=== PATIENT | female | born 1965 | race Caucasian/White ===

== ENCOUNTER → 2019-04-05 12:51 | Outpatient (CLI) | payer OTHER, SELFPAY ==
--- NOTE | 2019-04-05 13:08 | XR_ITS ---
PROCEDURE: XR HIP LT 2-3V W/PELVIS CLINICAL INDICATION: LT HIP PAIN Left hip pain COMPARISON: No exams were available for comparison FINDINGS: No fracture or dislocation is evident. No significant degenerative change. No lytic or blastic change. Unremarkable soft tissues. IMPRESSION: No acute findings. Dictated by: Joce Bruce MD 04/05/2019 13:40 Electronically signed by Joce Bruce MD in [facility] 04/05/2019 13:40
--- NOTE | 2019-04-05 13:08 | XR_ITS ---
PROCEDURE: XR CHEST 2V CLINICAL HISTORY: BRONCHITIS COMPARISON: No exams were available for comparison FINDINGS: The cardiomediastinal silhouette and pulmonary vascularity are within normal limits. No lobar consolidation or collapse. Faint nodular opacity overlies the posterior aspect of the right 7th rib and may be due to summation artifact. Stability may be confirmed with follow-up. No acute bony abnormalities. IMPRESSION: No definite acute finding. Please see above for detail Dictated by: Joce Bruce MD 04/05/2019 13:44 Electronically signed by Joce Bruce MD in [facility] 04/05/2019 13:44
== END ==
PROVIDERS: PCP Family Medicine; Visit Provider Nurse Practitioner
DX: J40 Bronchitis, not specified as acute or chronic (principal); M25.552 Pain in left hip
CPT/HCPCS: 71046; 73502

== ENCOUNTER → 2020-08-18 12:19 | Outpatient (CLI) | payer OTHER, SELFPAY ==
--- NOTE | 2020-08-18 | XR_ITS ---
PROCEDURE: XR CERVICAL SPINE 5V CLINICAL INDICATION: NECK PAIN. NO TRAUMA COMPARISON: No exams were available for comparison FINDINGS: Normal alignment. No fracture or dislocation. No lytic or blastic change. Mild degenerative disc disease at C5-C6. Facet hypertrophic changes are present on the left from C2-C7 and to lesser degree on the right from C5-C7. No significant foraminal narrowing. No evidence of cervical rib. Carotid artery calcifications are present on the right IMPRESSION: Mild cervical spondylosis as described above. Dictated by: Joce Bruce MD 08/18/2020 12:50 Joce Bruce MD in [facility] 08/18/2020 12:50
== END ==
PROVIDERS: PCP Family Medicine; Visit Provider Family Medicine
DX: M54.2 Cervicalgia (principal)
CPT/HCPCS: 72050

== ENCOUNTER → 2020-11-17 13:27 | Outpatient (CLI) | payer OTHER, SELFPAY ==
--- NOTE | 2020-11-17 13:33 | XR_ITS ---
PROCEDURE: XR CHEST 2V CLINICAL HISTORY: SOB,PALITATIONS COMPARISON: CR XR CHEST 2V from 04/05/2019 FINDINGS: The cardiomediastinal silhouette and pulmonary vascularity are within normal limits. No lobar consolidation or collapse. 9 mm nodules present in the right midlung. Suggest chest CT with contrast for further evaluation. The remaining lungs are clear. No acute bony anomalies. IMPRESSION: 9 mm right midlung nodule. Recommend chest CT with contrast for further evaluation. Dictated by: Joce Bruce MD 11/17/2020 13:50 Joce Bruce MD in [facility] 11/17/2020 13:50
--- NOTE | 2020-11-17 14:02 | ECG_ITS ---
APPROVED REPORT Exam: Resting ECG HR:74 bpm ECG Measurements Heart Rate 74 AXES CA 160 P 42 QRSd 78 QRS -2 QT 404 T 16 QTc 448 Conclusion Normal sinus rhythm Nonspecific ST abnormality Abnormal ECG Electronically signed by : Nickolas Suazo MD 11/17/2020 18:01:09
== END ==
PROVIDERS: PCP Family Medicine; Visit Provider Family Medicine
DX: R06.02 Shortness of breath (principal); R00.2 Palpitations
CPT/HCPCS: 71046; 93005

== ENCOUNTER → 2020-12-01 09:43 | Outpatient (CLI) | payer OTHER, SELFPAY ==
[2020-12-01 10:26] LABS: Blood Urea Nitrogen 12 mg/dl (7-17); Estimated Glomerular Filt Rate 74 ml/min (>60); GFR (African American) 90 ML/MIN (>60)
== END ==
PROVIDERS: Visit Provider Family Medicine
DX: R91.1 Solitary pulmonary nodule (principal)
CPT/HCPCS: 36415; 82565; 84520

== ENCOUNTER → 2020-12-03 12:37 | Outpatient (CLI) | payer OTHER, SELFPAY ==
[2020-12-03 13:30] VITALS: PULSE 64; PULSE 67
--- NOTE | 2020-12-03 14:11 | CT_ITS ---
PROCEDURE: CT CHEST W CON CLINCAL INDICATION: LUNG NODULE,SOLITARY COMPARISON: CR XR CHEST 2V from 04/05/2019 CR XR CHEST 2V from 11/17/2020 TECHNIQUE: IV Contrast: 75ml Isovue 370 Axial images obtained with sagittal and coronal reformats. All CT scans at the facility use one or more dose reduction, viz: automated exposure control, ma/kV adjustment per patient size (including targeted exams where dose is matched to indication, i.e. head), or iterative reconstruction technique. FINDINGS: HEART AND MEDIASTINAL STRUCTURES: There is heterogeneous enhancement of the thyroid gland which is incompletely imaged. No evidence of aortic aneurysm or dissection. No central pulmonary embolus. No mediastinal or hilar mass or adenopathy. LUNGS AND PLEURAL SPACES: There is a 9 mm well-circumscribed nodule in the right lower lobe posterior laterally image 3/34. No definite calcification within the nodule. No other nodules apparent. No effusions or infiltrates. BONY STRUCTURES: Prominent lucency involves the T9 vertebral body anteriorly on the right with a corrugated appearance consistent with a hemangioma. ADDITIONAL FINDINGS: Fatty liver. Mild nodularity of the adrenal glands left more so than right nonspecific. IMPRESSION: 9 mm solitary pulmonary nodule superior segment right lower lobe. This does not contain any internal calcifications. The nodule is well-circumscribed without obvious spiculations. This may represent a noncalcified granuloma. One cannot exclude the possibility of a neoplastic process. PET CT may provide further evaluation. If that is not performed then would at least recommend a 3 month follow-up to confirm short term stability. Dictated by: Joce Bruce MD 12/04/2020 11:44 Joce Bruce MD in [facility] 12/04/2020 11:46
== END ==
PROVIDERS: PCP Family Medicine; Visit Provider Family Medicine
DX: R06.02 Shortness of breath (principal); R91.1 Solitary pulmonary nodule
CPT/HCPCS: 71260; 94060; 94640; Q9967

== ENCOUNTER → 2020-12-18 14:18 | Outpatient (CLI) | payer OTHER, SELFPAY ==
--- NOTE | 2020-12-18 14:21 | CA_ITS ---
APPROVED REPORT EXAM: Comprehensive 2D, Doppler, and color-flow Echocardiogram [place] Technician: Idalia Dale RVT Ht: 5 ft 6 in Wt: 182lbs BSA: 1.92 BP: 132/75 mmHg Indications: PALPS,SOA,HTN 2D Dimensions LVOT 2.02 cm (M/F) 1.5-2.5 LA Volume 18.30 mL LA Volume Index 9.53 mL/m2 (M/F) 16-34 M-Mode Dimensions RVDd 2.82 cm (0.9-2.6) LA Diam 2.91 cm (1.9-4.0) LVDd 3.97 cm (3.5-5.7) Ao Diam 3.21 cm (2.0-3.7) LVDs 2.43 cm (3.5-5.7) IVSd 1.46 cm (0.6-1.1) PWd 0.89 cm (0.6-1.1) EF (Teich) 69.80% FS 38.80% EDV (Teich) 68.80 mL TAPSE 2.30 (<1.7) ESV (Teich) 20.80 mL LV Diastology E Decel Time 157.00 (160-240 msec) E/A Ratio 0.6 MED E' 4.40 (< 7 cm/sec) E'/MED E' Ratio 14.11 (>14) LAT E' 7.50 (<10 cm/sec) E/LAT E' Ratio 8.28 (>14) Mitral Valve MV E Max Roel. 62.00 (40-130 cm/s) MV A Velocity 98.00 (40-130 cm/s) E/A Ratio 0.63 MV Decel. Time 157.00 (160-240 ms) MV PHT 46.00 ms Pulmonary Valve PV Peak Velocity 72.00 (50-150 cm/s) Tricuspid Valve TR P. Velocity 260.00 cm/s RAP Estimate 10.00 mmHg RVSP 37.00 mmHg Left Ventricle Left atrium is mildly enlarged, left ventricle is normal size, mild concentric left ventricular hypertrophy, septum is sigmoid configuration, visually estimated ejection fraction 55% with no regional wall motion abnormality, grade 1 diastolic dysfunction seen without tissue Doppler evidence of raise left atrial pressure. Right Ventricle Right atrium and right ventricle are normal size and contractility. Aortic Valve Aortic valve is minimally thickened and fibrosed, there is no aortic stenosis or aortic insufficiency. Mitral Valve Mitral valve grossly normal, there is trace mitral regurgitation. Tricuspid Valve Tricuspid valve grossly normal, there is trace tricuspid regurgitation, tricuspid regurgitation jet velocity is inadequate for calculation of the right ventricular systolic pressure. Pulmonic Valve Pulmonic valve is poorly visualized. Great Vessels Aortic root is normal size. Inferior vena cava is normal size with normal inspiratory collapse. Pericardium No significant pericardial effusion noted. Conclusion 1. Mildly enlarged left atrium, normal left ventricular size, mild concentric left ventricular hypertrophy, septum is sigmoid configuration, visually estimated ejection fraction 55% with no regional wall motion abnormality, grade 1 diastolic dysfunction seen without tissue Doppler evidence of raise left atrial pressure. 2. Trace mitral and tricuspid regurgitation. 3. No significant pericardial effusion noted. Electronically signed by : Richard Fong MD 12/19/2020 13:43:39
[2020-12-18 16:33] LABS: Coronavirus 19 IgG Antibody Negative (Negative); Coronavirus 19 IgM Antibody Negative (Negative)
== END ==
PROVIDERS: PCP Family Medicine; Visit Provider Family Medicine
DX: R00.2 Palpitations (principal); R06.02 Shortness of breath; Z20.822 Contact with and (suspected) exposure to COVID-19
CPT/HCPCS: 36415; 86328; 93306

== ENCOUNTER 2021-02-07 20:21 | Emergency (ER) | payer OTHER, SELFPAY ==
[2021-02-07 20:23] VITALS: BP 180/78; PULSE 72; RESP 18; TEMP 36.8; O2SAT 97; BMI 28.7
--- NOTE | 2021-02-07 20:35 | XR_ITS ---
PROCEDURE INFORMATION: Exam: XR Left Knee Exam date and time: 02/07/2021 8:35 PM Age: 55 years old Clinical indication: Injury or trauma; Fall; Sprain or strain; Patella or knee; Left; Injury date: 02/07/2021 TECHNIQUE: Imaging protocol: XR Left knee. Views: 3 views. COMPARISON: No relevant prior studies available. FINDINGS: Bones/joints: Normal. Soft tissues: Normal. IMPRESSION: No acute findings.
[2021-02-07 21:38] VITALS: BP 152/86; PULSE 75; RESP 20; TEMP 36.8; O2SAT 98
--- NOTE | 2021-02-08 03:31 | [facility].EDGENADL ---
ED Disposition Clinical Impression: Strain of left knee Qualifiers: Encounter type: initial encounter Qualified Code(s): S86.912A - Strain of unspecified muscle(s) and tendon(s) at lower leg level, left leg, initial encounter Disposition: Home, Self-Care Condition on Discharge: Good Instructions: DI for Knee Sprain Additional Instructions: Please continue supportive care at home including tylenol, ibuprofen, elevation, and ice for pain and swelling. You may wear your knee brace for comfort. If your condition worsens or other concerns arise, please return to the emergency department. Otherwise, please see an orthopaedic specialist on an outpatient basis. Referrals: Hansel Soto MD [Primary Care Provider] - Devan Hernandez MD [Staff Physician] - - Critical Care Critical Care Time: No Attestation: On 02/07/21, the high probability of a clinically significant, sudden or life threatening deterioration of the following system(s) required my full and direct attention, intervention and personal management. The time I documented below is in addition to time spent performing reported procedures but includes the following listed in this critical care notation. Medical Decision Making - Medical Records Medical records reviewed: Yes: I reviewed the patient's medical records. - Sunny Inquiry Pt receiving controlled substance: No Vital Signs: 02/07/21 20:23 02/07/21 21:38 Temperature 98.2 F 98.2 F Temperature Source Oral Oral Pulse Rate 75 Pulse Rate [Left Radial] 72 Respiratory Rate 18 20 Blood Pressure 152/86 H Blood Pressure [Left Arm] 180/78 H Blood Pressure Mean [Left Arm] 112 Blood Pressure Source [Left Arm] Automatic Cuff Blood Pressure Position [Left Arm] Supine 02 Sat by Pulse Oximetry 97 Oxygen Delivery Method Room Air Room Air - Radiology Data #1 Image(s): Knee L Knee XR FINDINGS: Bones/joints: Normal. Soft tissues: Normal. IMPRESSION: No acute findings. Medical Decision Narrative: Patient is a 55-year-old female presenting with a chief complaint of left knee pain. Differential diagnosis includes, but is not limited to, fracture, dislocation, ligament sprain, muscular strain. On initial evaluation, patient is hemodynamically stable, nontoxic-appearing without evidence of head and neck trauma or trauma to any other extremity. Exam of the left knee shows minimal to no swelling in comparison to the right knee. Patient has pain with palpation of the medial left knee and infrapatellar region. She is able to extend her knee in full extension. She does have pain with weightbearing but no overlying abrasion or laceration. Patient was evaluated with x-ray of the left knee which is without acute findings or fracture. Patient was counseled on supportive care, given a knee brace and advised to follow-up with an orientation and mobility specialist on an outpatient basis. She was discharged in a stable condition. General Adult HPI - General Chief complaint: Extremity Problem,Nontraumatic Stated complaint: AO11/13@1900 left knee injury Time Seen by Provider: 02/07/21 21:30 Mode of Arrival: Wheelchair Source of Information: Patient Limitations: Physical Limitations Description of Symptoms (Recalled from ER Triage Doc. by RN): Pt states L knee cracked while lifting a bale of hay, happened over an hour ago. - History of Present Illness HPI narrative: Patient is a 55yo F without significant past medical history presenting for chief complaint of left knee pain. Patient reports she was hauling hay and felt a pop in her left knee as she slipped. Patient states she is unable to ambulate due to pain and reports mild swelling to her left knee. She reports tenderness over the medial aspect and infrapatellar aspect of her knee. She is able to fully extend her lower extremity at the knee joint. She denies falling, hitting her head, losing consciousness. No blood thinner use. Denies abrasions or lacera
== END 2021-02-07 21:56 | disposition home or self-care (01) ==
PROVIDERS: Emergency Provider Emergency Medicine; PCP Family Medicine
DX: S86.912A Strain of unspecified muscle(s) and tendon(s) at lower leg level, left leg, initial encounter (principal); X50.1XXA Overexertion from prolonged static or awkward postures, initial encounter; Y92.73 Farm field as the place of occurrence of the external cause
CPT/HCPCS: 73562; 99282